=== PATIENT | male | born 1950 | race Two or more races ===

== ENCOUNTER → 2016-10-19 | Outpatient (CLI) | payer MEDICARE ==
--- NOTE | 2016-10-19 09:18 | RAD ---
Examination: 2 views of the right hip History: History of right hip pain Comparison: None available Findings: Mild to moderate joint space loss identified in the right hip joint. There is no acute fracture or dislocation identified. Impression: Mild to moderate degenerative changes right hip joint..
== END | disposition home or self-care (01) ==
LOC: DXRADRC 07:35
PROVIDERS: ATTEND Physician Assistant Medical
DX: M16.11 Unilateral primary osteoarthritis, right hip (principal); X58.XXXD Exposure to other specified factors, subsequent encounter
CPT/HCPCS: 73501

== ENCOUNTER → 2019-07-08 | Outpatient (CLI) | payer MEDICARE ==
--- NOTE | 2019-07-08 10:03 | RAD ---
EXAM: Chest, 2 views. HISTORY: Pain. COMPARISON: None. FINDINGS: 2 views of the chest are obtained. There is no infiltrate, pleural effusion or pneumothorax. The heart is normal in size. IMPRESSION: No acute pulmonary finding. Electronically signed by: Haylee Greene MD (07/08/2019 10:00 AM) [facility] [place]
== END | disposition home or self-care (01) ==
LOC: PMG 08:55
PROVIDERS: ATTEND Physician Assistant Medical
DX: R07.89 Other chest pain (principal)
CPT/HCPCS: 71046

== ENCOUNTER 2021-08-07 22:27 | Emergency (ER) | payer MEDICARE, OTHER ==
[~2021-08-07] VITALS: Ht 172.7 cm; Wt 95.0 kg
[2021-08-07] MEDS ORDERED: METOCLOPRAMIDE HCL 10 MG/2 ML VIAL. IVP ONE (23:00)
[2021-08-07] MEDS ORDERED: IV NORMAL SALINE 1,000ML 1,000 ML IV ONE (23:00)
[2021-08-07] MEDS ORDERED: METF500T16 PO (23:05)
[2021-08-07] MEDS ORDERED: PRAV80TA2 PO (23:05)
[2021-08-07] MEDS ORDERED: OMEP20CA16 PO (23:05)
--- NOTE | 2021-08-07 23:13 | PHYS DOC ---
Past History Past Medical History: GERD, High Cholesterol Additional Past Medical Histor: palpitations (NIMCO ROBERTS APRN) Past Surgical History: No Surgical History (NIMCO ROBERTS APRN) Smoking: Quit Greater Than 1 Year Alcohol Use: None Drug Use: None (NIMCO ROBERTS APRN) General Adult EDM: Chief Complaint: NAUSEA/VOMITING/DIARRHEA HPI: HPI: Patient is a 71-year-old male that presents today with nausea and vomiting and diarrhea. Patient states that around 2144 today patient had a sudden onset of nausea and vomiting, patient states that he had 2 bowel movements 1 of which was normal in consistency and one that was liquid in consistency. Patient states that he has a warm flush feeling, the only thing he had to eat this evening was a shake for vitamins and minerals that he has taken for over 1 month, he states that he has not been around anybody that has been ill recently. Patient also states that last he had an episode of nausea and sweats with some left- sided chest wall pain, he states that he went to urgent care on Saturday for evaluation they stated he had a viral syndrome and sent him home to follow-up with his primary care. Patient denies chest pain or shortness of air at this time patient also denies fever and chills. Patient was actively vomiting in the lobby area prior to coming to her room. (NIMCO ROBERTS APRN) Review of Systems: Review of Systems: Constitutional: Denies fever or chills Eyes: Denies change in visual acuity HENT: Denies nasal congestion or sore throat Respiratory: Denies cough or shortness of breath Cardiovascular: Denies chest pain or edema GI: Nausea and vomiting denies abdominal pain, bloody stools or diarrhea : Denies dysuria Musculoskeletal: Denies back pain or joint pain Integument: Denies rash Neurologic: Denies headache, focal weakness or sensory changes Endocrine: Denies polyuria or polydipsia Lymphatic: Denies swollen glands Psychiatric: Denies depression or anxiety (NIMCO ROBERTS APRN) Current Medications: Current Meds: Current Medications Medications (Trade) Dose Ordered Sig/Julisa Start Time Stop Time Status Last Admin Dose Admin Metoclopramide HCl (Reglan Vial) 10 mg 1X ONCE 08/07/21 23:00 08/07/21 23:01 DC Sodium Chloride 1,000 ml @ 1,000 mls/hr 1X ONCE 08/07/21 23:00 08/07/21 23:59 (NIMCO ROBERTS APRN) Allergies: Allergies: Allergies Coded Allergies Type Severity Reaction Last Updated Verified Penicillins Allergy Unknown 08/07/21 Yes ampicillin Allergy Unknown 08/07/21 Yes tetracycline Allergy Unknown 08/07/21 Yes (NIMCO ROBERTS APRN) Physical Exam: PE: Constitutional: Well developed, well nourished, mild distress, non-toxic appearance. [] HENT: Normocephalic, atraumatic, bilateral external ears normal, oropharynx moist, no oral exudates, nose normal. [] Eyes: PERRLA, EOMI, conjunctiva normal, no discharge. [] Neck: Normal range of motion, no tenderness, supple, no stridor. [] Cardiovascular:Heart rate regular rhythm, no murmur [] Lungs & Thorax: Bilateral breath sounds clear to auscultation [] Abdomen: Bowel sounds hyperactive, bloated, diffuse tenderness, no masses. Skin: Warm, dry, no erythema, no rash. [] Back: No tenderness, no CVA tenderness. [] Extremities: No tenderness, no cyanosis, no clubbing, ROM intact, no edema, peripheral pulses 2+ Neurologic: Alert and oriented X 3, normal motor function, normal sensory function, no focal deficits noted. [] Psychologic: Affect normal, judgement normal, mood normal. [] (NIMCO ROBERTS APRN) Current Patient Data: Labs: Laboratory Tests Test 08/07/21 22:45 08/07/21 23:10 White Blood Count 14.0 x10^3/uL Red Blood Count 5.45 x10^6/uL Hemoglobin 16.4 g/dL Hematocrit 48.8 % Mean Corpuscular Volume 89 fL Mean Corpuscular Hemoglobin 30 pg Mean Corpuscular Hemoglobin Concent 34 g/dL Red Cell Distribution Width 13.4 % Platelet Count 219 x10^3/uL Neutrophils (%) (Auto) 79 % Lymphocytes (%) (Auto) 11 % Monocytes (%) (Auto) 9 % Eosinophils (%) (Auto) 1 % Basophils (%) (Auto) 0 % Neutrophils # (Auto) 11.0 x10^3uL Lymphocytes # (Auto) 1.5 x10^3/uL Monocytes # (Auto) 1.2 x10^3/uL Eosinophils # (Auto) 0.2 x10^3/uL Basophils # (Auto) 0.0 x10^3/uL D-Dimer (Kortney) 0.31 mg/L Sodium Level 143 mmol/L Potassium Level 3.6 mmol/L Chloride Level 104 mmol/L Carbon Dioxide Level 26 mmol/L Anion Gap 13 Blood Urea Nitrogen 13 mg/dL Creatinine 1.1 mg/dL Estimated GFR (Cockcroft-Gault) 66.2 BUN/Creatinine Ratio 12 Glucose Level 135 mg/dL Calcium Level 9.3 mg/dL Total Bilirubin 0.6 mg/dL Aspartate Amino Transf (AST/SGOT) 25 U/L Alanine Aminotransferase (ALT/SGPT) 36 U/L Alkaline Phosphatase 52 U/L Troponin I High Sensitivity 13 ng/L Total Protein 7.3 g/dL Albumin 4.3 g/dL Albumin/Globulin Ratio 1.4 Lipase 126 U/L Urine Collection Type Clean catch Urine Color Yellow Urine Clarity Clear Urine pH 6.0 Urine Specific Witten 1.025 Urine Protein 100 mg/dl Urine Glucose (UA) Neg mg/dL Urine Ketones (Stick) Neg mg/dL Urine Blood Neg Urine Nitrite Neg Urine Bilirubin Neg Urine Urobilinogen Dipstick 0.2 mg/dL Urine Leukocyte Esterase Neg Urine RBC 0 /HPF Urine WBC 0 /HPF Urine Squamous Epithelial Cells None /LPF Urine Bacteria 0 /HPF Urine Hyaline Casts Occ /HPF Current Medications Medications (Trade) Dose Ordered Sig/Julisa Route PRN Reason Start Time Stop Time Status Last Admin Dose Admin Sodium Chloride 1,000 ml @ 1,000 mls/hr 1X ONCE IV 08/07/21 23:00 08/07/21 23:59 DC 08/07/21 23:09 Metoclopramide HCl (Reglan Vial) 10 mg 1X ONCE IVP 08/07/21 23:00 08/07/21 23:01 DC 08/07/21 23:09 Vital Signs: Vital Signs Date Time Temp Pulse Resp B/P (MAP) Pulse Ox O2 Delivery O2 Flow Rate FiO2 08/07/21 22:35 98.7 84 18 152/94 (113) 98 Room Air (NIMCO ROBERTS APRN) EKG: EKG: EKG done at [address] Baez at 2305 shows sinus rhythm with no ectopy at a rate of 84 with a AR interval of 180 ms with a QTC of 436 ms no STEMI [] (NIMCO ROBERTS APRN) EKG: My interpretation EKG shows sinus rhythm at 84 bpm. There is nonspecific contour changes in the anterior lateral leads. But no findings acute STEMI with contralateral changes. Time of EKG is 2301 hrs. (TOMAS BAEZ MD) Radiology/Procedures: Radiology/Procedures: [] (NIMCO ROBERTS APRN) Radiology/Procedures: [place] [address] IMAGING REPORT Signed PATIENT: RENE SALAZAR ACCOUNT: [id number] : 1950 LOCATION: ER AGE: 71 SEX: M EXAM STATUS: REG ER ORD. PHYSICIAN: NIMCO ROBERTS APRN REASON: nausea and vomiting PROCEDURE: CT ABD PELV W/ IV CONTRST ONLY EXAMINATION: CT abdomen and pelvis with IV contrast. INDICATION:71 years, Male, nausea and vomiting. TECHNIQUE: Axial CT images of the abdomen and pelvis were obtained. Coronal and sagittal reformatted performed. COMPARISON: None. Exposure: One or more of the following individualized dose reduction techniques were utilized for this examination: 1. Automated exposure control 2. Adjustment of the mA and/or kV according to patient size 3. Use of iterative reconstruction technique. FINDINGS: LOWER CHEST: Unremarkable. ABDOMEN/PELVIS: Liver, spleen, gallbladder, biliary ducts, pancreas, adrenal glands and kidneys are unremarkable. No bowel obstruction. Colonic diverticulosis without acute diverticulitis. Normal appendix. Normal caliber abdominal aorta. Mesenteric arteries and portal veins are patent. No pneumoperitoneum or ascites. No lymphadenopathy. Unremarkable urinary bladder and prostate. MUSCULOSKELETAL STRUCTURES: No acute osseous process. Multilevel degenerative changes in the spine. IMPRESSION: 1. No acute intra-abdominal findings. 2. Colonic diverticulosis. Electronically signed by: Jarred Phillips MD (08/08/2021 2:09 AM) [facility] DICTATED AND SIGNED BY: JARRED PHILLIPS MD DATE: 08/08/21 0205 CC: NIMCO ROBERTS APRN; TOMAS BAEZ MD; MARYCARMEN JAEGER ~MTH0 0 (TOMAS BAEZ MD) Heart Score: C/O Chest Pain: No Risk Factors: Risk Factors: DM, Current or recent (<one month) smoker, HTN, HLP, family history of CAD, obesity. Risk Scores: Score 0 - 3: 2.5% MACE over next 6 weeks - Discharge Home Score 4 - 6: 20.3% MACE over next 6 weeks - Admit for Clinical Observation Score 7 - 10: 72.7% MACE over next 6 weeks - Early Invasive Strategies (NIMCO ROBERTS APRN) C/O Chest Pain: Yes HEART Score for Chest Pain: HEART Score for Chest Pain Response (Comments) Value History Slighlty/Non-Suspicious 0 ECG Nonspecific Repolarizatio 1 Age > 65 2 Risk Factors 1 or 2 Risk Factors 1 Troponin < Normal Limit 0 Total 4 (TOMAS BAEZ MD) Course & Med Decision Making: Course & Med Decision Making Pertinent Labs and Imaging studies reviewed. (See chart for details) [id number] Baez continue to await CT scan results. (NIMCO ROBERTS APRN) Dragon Disclaimer: Dragon Disclaimer: This electronic medical record was generated, in whole or in part, using a voice recognition dictation system. (NIMCO ROBERTS APRN) Dragon Disclaimer: d (TOMAS BAEZ MD) Departure Departure: Referrals: MARYCARMEN JAEGER (PCP) Scripts Ondansetron (ONDANSETRON ODT) 8 Mg Tab.rapdis 8 MG PO QIDPRN PRN for nv, #30 TAB Prov: TOMAS BAEZ MD 08/08/21 Dragon Disclaimer This chart was dictated in whole or in part using Voice Recognition software in a busy, high-work load, and often noisy Emergency Department environment. It may contain unintended and wholly unrecognized errors or omissions. (TOMAS BAEZ MD) Dragon Disclaimer This chart was dictated in whole or in part using Voice Recognition software in a busy, high-work load, and often noisy Emergency Department environment. It may contain unintended and wholly unrecognized errors or omissions. (NIMCO ROBERTS APRN) Dragon Disclaimer This chart was dictated in whole or in part using Voice Recognition software in a busy, high-work load, and often noisy Emergency Department environment. It may contain unintended and wholly unrecognized errors or omissions. (TOMAS BAEZ MD) Dragon Disclaimer This chart was dictated in whole or in part using Voice Recognition software in a busy, high-work load, and often noisy Emergency Department environment. It may contain unintended and wholly unrecognized errors or omissions. (NIMCO ROBERTS APRN) Dragon Disclaimer This chart was dictated in whole or in part using Voice Recognition software in a busy, high-work load, and often noisy Emergency Department environment. It may contain unintended and wholly unrecognized errors or omissions. (TOMAS BAEZ MD) Dragon Disclaimer This chart was dictated in whole or in part using Voice Recognition software in a busy, high-work load, and often noisy Emergency Department environment. It may contain unintended and wholly unrecognized errors or omissions. (NIMCO ROBERTS APRN) Attending Signature Attending Signature I have participated in the care of this patient and I have reviewed and agree with all pertinent clinical information above including history, exam, and recommendations. (TOMAS BAEZ MD) Attending Signature I have participated in the care of this patient and I have reviewed and agree with all pertinent clinical information above including history, exam, and recommendations. (NIMCO ROBERTS APRN) NIMCO ROBERTS APRN Aug 07, 2021 23:13 TOMAS BAEZ MD Aug 08, 2021 05:31
[2021-08-07 23:30] LABS: BASO % 0 % (0-3); EOS # 0.2 x10^3/uL (0.0-0.7); EOS % 1 % (0-3); HEMATOCRIT 48.8 % (39.0-53.0); HEMOGLOBIN 16.4 g/dL (13.0-17.5); LYMPH # 1.5 x10^3/uL (1.0-4.8); LYMPH % 11 % (24-48); MEAN CORPUSCULAR HEMOGLOBIN 30 pg (25-35); MEAN CORPUSCULAR HGB CONC 34 g/dL (31-37); MEAN CORPUSCULAR VOLUME 89 fL (79-100); MONO # 1.2 x10^3/uL (0.0-1.1); MONO % 9 % (0-9); NEUT % 79 % (31-73); PLATELET COUNT 219 x10^3/uL (140-400); RED BLOOD COUNT 5.45 x10^6/uL (4.30-5.70); RED CELL DISTRIBUTION WIDTH 13.4 % (11.5-14.5)
[2021-08-07 23:39] LABS: CALCIUM 9.3 mg/dL (8.5-10.1); CREATININE 1.1 mg/dL (0.7-1.3); GFR 66.2; POTASSIUM 3.6 mmol/L (3.5-5.1)
[2021-08-07 23:46] LABS: ALBUMIN 4.3 g/dL (3.4-5.0); ALBUMIN/GLOBULIN RATIO 1.4 (1.0-1.7); TOTAL BILIRUBIN 0.6 mg/dL (0.2-1.0); TOTAL PROTEIN 7.3 g/dL (6.4-8.2)
[2021-08-08 00:36] LABS: BACTERIA,URINE 0 /HPF (0-FEW); CLARITY,URINE CLEAR; COLOR,URINE YELLOW; GLUCOSE,URINE NEG (NEG); NITRITE,URINE NEG (NEG); RBC,URINE 0 /HPF (0-2); UROBILINOGEN,URINE 0.2 mg/dL (0.2 mg/dL); WBC,URINE 0 /HPF (0-4)
[2021-08-08 00:37] LABS: HYALINE CASTS, URINE OCC /HPF
[2021-08-08] MEDS ORDERED: CONTRAST GIVEN. MC PRN (01:45)
[2021-08-08] MEDS ORDERED: IOHEXOL 300 MG/ML 75 ML VIAL. IV ONE (01:45)
[2021-08-08 02:03] LABS: INFLUENZA A PATIENT NEGATIVE (NEGATIVE); INFLUENZA B PATIENT NEGATIVE (NEGATIVE)
--- NOTE | 2021-08-08 02:12 | RAD ---
EXAMINATION: CT abdomen and pelvis with IV contrast. INDICATION:71 years, Male, nausea and vomiting. TECHNIQUE: Axial CT images of the abdomen and pelvis were obtained. Coronal and sagittal reformatted performed. COMPARISON: None. Exposure: One or more of the following individualized dose reduction techniques were utilized for thi s examination: 1. Automated exposure control 2. Adjustment of the mA and/or kV according to patient size 3. Use of iterative reconstruction technique. FINDINGS: LOWER CHEST: Unremarkable. ABDOMEN/PELVIS: Liver, spleen, gallbladder, biliary ducts, pancreas, adrenal glands and kidneys are unremarkable. No bowel obstruction. Colonic diverticulosis without acute diverticulitis. Normal appendix. Normal calib er abdominal aorta. Mesenteric arteries and portal veins are patent. No pneumoperitoneum or ascites. No lymphadenopathy. Unremarkable urinary bladder and prostate. MUSCULOSKELETAL STRUCTURES: No acute osseous process. Multilevel degenerative changes in the spine. IMPRESSION: 1. No acute intra-abdominal findings. 2. Colonic diverticulosis. Electronically signed by: Brando Phillips MD (08/08/2021 2:09 AM) [facility]
[2021-08-08 05:30] VITALS: BP 156/99
[2021-08-08] MEDS ORDERED: ONDA8TAB15 PO (05:40)
--- NOTE | 2021-08-08 06:44 | EKG ---
[address] [address] Test Date: 2021-08-07 Test Time: 23:01:35 Pat Name: RENE SALAZAR Department: Room: Gender: M Rayon Winder: OLE : 1950 Requested By: NIMCO ROBERTS Order Number: [id number] Reading MD: Agustín Howard Measurements Intervals [place] Rate: 84 P: 48 MI: 180 QRS: 88 QRSD: 78 T: 49 QT: 366 QTc: 436 Interpretive Statements SINUS RHYTHM Electronically Signed On 08-10-2021 8:40:22 [employer] by Agustín Howard
== END 2021-08-08 05:55 | disposition home or self-care (01) ==
LOC: ER 22:27
DX: R11.2 Nausea with vomiting, unspecified (principal); R19.7 Diarrhea, unspecified; R07.89 Other chest pain; K21.9 Gastro-esophageal reflux disease without esophagitis; E78.00 Pure hypercholesterolemia, unspecified; Z20.822 Contact with and (suspected) exposure to COVID-19; Z87.891 Personal history of nicotine dependence; Z88.0 Allergy status to penicillin; Z88.1 Allergy status to other antibiotic agents
CPT/HCPCS: 36415; 74177; 80053; 81001; 83690; 84484; 85025; 85379; 87428; 93005; 96361; 96374; 99285; C9803; J2765; J7030; U0003